=== PATIENT | female | born 1975 | race Caucasian/White ===

== ENCOUNTER → 2018-09-02 | Outpatient (CLI) | payer OTHER ==
[~2018-09-02] MED LIST: CETI10TA24 PO; CETI1TAB6 PO; CHOL10003 PO; CYAN25009 PO; IBUP-1221 PO; NORE5TAB PO
[2018-09-02 10:48] LABS: BASOPHILS # (AUTO) 0.04 x10^3/uL (0-0.1); BASOPHILS % (AUTO) 1 % (0-1); EOSINOPHILS # (AUTO) 0.18 x10^3/uL (0-0.4); EOSINOPHILS % (AUTO) 2 % (1-7); LYMPHOCYTES # (AUTO) 1.74 x10^3/uL (1-3.4); LYMPHOCYTES % (AUTO) 23 % (22-44); MD NO; MEAN CORPUSCULAR HEMOGLOBIN 31.3 pg (27.0-34.8); MEAN PLATELET VOLUME 7.5 fL (7.4-10.4); MONOCYTES # (AUTO) 0.34 x10^3/uL (0.2-0.8); MONOCYTES % (AUTO) 4 % (2-9); NEUTROPHILS # (AUTO) 5.35 x10^3/uL (1.8-6.8); NEUTROPHILS % (AUTO) 70 % (42-75); PLATELET COUNT 389 x10^3/uL (130-400); RED BLOOD COUNT 4.63 x10^6/uL (3.82-5.3)
[2018-09-02 10:49] LABS: MICROSCOPIC NOT IND
[2018-09-02 10:52] LABS: CULTURE INDICATED? NO
[2018-09-02 11:00] LABS: ANION GAP 7 mmol/L (5-15); CHLORIDE 108 mmol/L (98-107)
[2018-09-02 11:06] LABS: ALANINE AMINOTRANSFERASE 22 U/L (12-78); ALKALINE PHOSPHATASE 55 U/L (45-117); BILIRUBIN,TOTAL 0.5 mg/dL (0.2-1.0); CREATININE 0.82 mg/dL (0.55-1.02); TOTAL PROTEIN 7.7 g/dL (6.4-8.2)
== END | disposition home or self-care (01) ==
LOC: STAR 09:55
PROVIDERS: ATTEND Obstetrics & Gynecology
DX: Z01.818 Encounter for other preprocedural examination (principal); R10.2 Pelvic and perineal pain; Z91.018 Allergy to other foods
CPT/HCPCS: 36415; 80053; 81003; 84702; 85025

== ENCOUNTER 2018-09-08 05:41 | Day surgery (SDC) | payer OTHER ==
[~2018-09-08] VITALS: Ht 162.6 cm; Wt 60.0 kg
[2018-09-08] MEDS ORDERED: LACTATED RINGERS 1,000 ML IV SCH (06:06)
[2018-09-08 06:08] VITALS: BP 128/74
[2018-09-08 06:41] LABS: HCG UR SG 1.018 (1.003-1.030)
[2018-09-08] MEDS ORDERED: GABAPENTIN 300 MG CAPSULE ONE (06:52)
[2018-09-08] MEDS ORDERED: ACETAMINOPHEN 500 MG TABLET ONE (06:52)
[2018-09-08] MEDS ORDERED: GLYCOPYRROLATE 0.2MG/1ML, 5ML ONE (06:55)
[2018-09-08] MEDS ORDERED: MIDAZOLAM 1 MG/ML, 2ML ONE (06:55)
[2018-09-08] MEDS ORDERED: FENTANYL PF 250 MCG/5ML ONE (06:55)
[2018-09-08] MEDS ORDERED: ONDANSETRON 2MG/ML, 2ML ONE (06:55)
[2018-09-08] MEDS ORDERED: NEOSTIGMINE 1 MG/ML, 10ML ONE (06:55)
[2018-09-08] MEDS ORDERED: CEFAZOLIN 1,000 MG ONE (06:55)
[2018-09-08] MEDS ORDERED: DEXAMETHASONE 4 MG/ML, 1ML ONE (06:55)
[2018-09-08] MEDS ORDERED: ROCURONIUM 10MG/ML,5ML ONE (06:55)
[2018-09-08] MEDS ORDERED: PROPOFOL 10 MG/ML, 20ML ONE (06:55)
[2018-09-08] MEDS ORDERED: ACETAMINOPHEN 500 MG TABLET PO ONE (07:00)
[2018-09-08] MEDS ORDERED: GABAPENTIN 300 MG CAPSULE PO ONE (07:00)
[2018-09-08] MEDS ORDERED: FLUORESCEIN SODIUM 500 MG/5 ML ONE (07:01)
[2018-09-08] MEDS ORDERED: BUPIVACAINE/PF-EPI 0.25% 1:200K ONE (07:01)
[2018-09-08] MEDS ORDERED: SCOPOLAMINE PATCH, 1.5MG PATCH.TD72 TD ONE (07:19)
[2018-09-08] MEDS ORDERED: MEPERIDINE/PF 25MG/0.5ML IVPush PRN (07:30)
[2018-09-08] MEDS ORDERED: LABETALOL 5MG/ML, 20ML IV PRN (07:30)
[2018-09-08] MEDS ORDERED: ONDANSETRON ODT 8 MG PO PRN (07:30)
[2018-09-08] MEDS ORDERED: PROMETHAZINE 25 MG/ML, 1ML IM PRN ×2 (07:30)
[2018-09-08] MEDS ORDERED: ONDANSETRON 2MG/ML, 2ML IV PRN (07:30)
[2018-09-08] MEDS ORDERED: FENTANYL PF 100 MCG/2ML IV PRN (07:30)
[2018-09-08] MEDS ORDERED: MORPHINE SULFATE 4 MG/ML, 1ML IVPush PRN (07:30)
[2018-09-08] MEDS ORDERED: PROMETHAZINE 25 MG/ML, 1ML IV PRN (07:30)
[2018-09-08] MEDS ORDERED: PROMETHAZINE 25 MG SUPP PR PRN (07:30)
[2018-09-08] MEDS ORDERED: hydrALAzine 20 MG/ML, 1ML IV PRN (07:30)
[2018-09-08] MEDS ORDERED: OXYcodone 5 MG/5 ML ORAL.SOL UDC PO PRN (07:30)
[2018-09-08] MEDS ORDERED: PROMETHAZINE 12.5 MG SUPP PR PRN (07:30)
[2018-09-08] MEDS ORDERED: BUPIVACAINE/PF-EPI 0.25% 1:200K INFIL ONE (07:59)
[2018-09-08] MEDS ORDERED: KETOROLAC 30 MG/1 ML ONE (08:01)
[2018-09-08] MEDS ORDERED: FENTANYL PF 100 MCG/2ML ONE ×2 (08:17→08:48)
[2018-09-08] MEDS ORDERED: PROMETHAZINE 25 MG SUPP PR ONE (09:41)
[2018-09-08] MEDS ORDERED: HYDROmorphone 2 MG/ML, 1ML ONE (09:42)
[2018-09-08] MEDS: HYDROmorphone 1 MG/ML, 1ML IV PRN ×2 (09:45→09:50)
[2018-09-08] MEDS ORDERED: LORazepam 2 MG/ML, 1ML IVPush PRN (10:00)
[2018-09-08] MEDS ORDERED: ALBUTEROL SULFATE 2.5 MG/3 ML NPPB PRN (10:00)
[2018-09-08] MEDS ORDERED: ALBUTEROL/IPRATROPIUM 2.5MG/0.5MG, 3 ML ONE (10:11)
== END 2018-09-08 17:10 | disposition home or self-care (01) ==
LOC: OUT 05:41
PROVIDERS: ATTEND Obstetrics & Gynecology
DX: D26.1 Other benign neoplasm of corpus uteri (principal); N80.0 Endometriosis of uterus; N83.8 Other noninflammatory disorders of ovary, fallopian tube and broad ligament; J45.909 Unspecified asthma, uncomplicated; Z98.51 Tubal ligation status; Z79.899 Other long term (current) drug therapy; Z98.890 Other specified postprocedural states
CPT/HCPCS: 36415; 58552; 81025; 86850; 86900; 88307; 94640; J0690; J1100; J1170; J1885; J2250; J2405; J2704; J2710; J3010; J3490; J7120; J7613